=== PATIENT | male | born 1930 | race Caucasian/White ===

== ENCOUNTER 2016-05-24 09:50 | Outpatient (CLI) | payer MEDICARE, OTHER ==
[2015-12-03 13:58] VITALS: BP 97/48
[2016-05-24 10:36] LABS: MEAN CORPUSCULAR HEMOGLOBIN 29.1 pg (28.0-34.0); MEAN CORPUSCULAR VOLUME 87.4 fl (80.0-100.0)
[2016-05-24 10:49] LABS: eGFR (African) > 60; eGFR (Non-African) > 60
== END 2016-05-24 09:52 ==
LOC: LAB 09:50
PROVIDERS: ATTEND Internal Medicine Cardiovascular Disease
DX: Z51.81 Encounter for therapeutic drug level monitoring (principal); Z79.01 Long term (current) use of anticoagulants; I48.0 Paroxysmal atrial fibrillation
CPT/HCPCS: 36415; 80048; 85027

== ENCOUNTER 2016-05-30 08:09 | Outpatient (CLI) | payer MEDICARE, OTHER ==
[2015-12-03 13:58] VITALS: BP 97/48
== END 2016-05-30 08:10 ==
LOC: POD 08:09
PROVIDERS: ATTEND Podiatrist Public Medicine
DX: E11.9 Type 2 diabetes mellitus without complications (principal); B35.1 Tinea unguium; L60.0 Ingrowing nail; M79.674 Pain in right toe(s); M79.675 Pain in left toe(s)
CPT/HCPCS: 11721; G0463

== ENCOUNTER 2016-06-10 09:38 | Emergency (ER) | payer MEDICARE, OTHER ==
--- NOTE | 2016-06-10 10:23 | ED Physician Documentation ---
General Adult - HISTORIAN Historian: patient, spouse - [facility] Chief Complaint: General Adult Additional Information: pt concern re pace maker and questions need for zarelto-asymptomatic at thiss time but has had some bruising-also concern that cardiologists did not explain his meds to his satisfaction Onset: days ago (3-4) Timing: still present (last noct legs slightly swollen but gone now. main concern heart rhythm) Severity: mild - ROS CONST: no problems EYES/ENT: denies: problems with vision (has glaucoma) CVS/RESP: denies: chest pain, shortness of breath, cough GI/: denies: abdominal pain, problems urinating, vomiting, nausea MS/SKIN/LYMPH: none NEURO/PSYCH: denies: headache, fainting, dizziness - PAST HX Past History: hypertension, other (card arrythmia-wears pace maker-checks current) Other History: other (gall stone bph pud in [id number] recent glaucoma) Surgeries/Procedures: other (pacemaker tkonsils as child) Allergies/Adverse Reactions: Allergies Allergy/AdvReac Type Severity Reaction Status Date / Time No Known Allergies Allergy Verified 06/10/16 10:25 Home Medications: Ambulatory Orders Medication Instructions Recorded Amlodipine Besylate [Norvasc] 5 mg PO DAILY 04/09/12 Aspirin EC [Ecotrin] 81 mg PO QD 04/09/12 Hydrochlorothiazide [Hydrodiuril] 25 mg PO DAILY 04/09/12 Lisinopril [Prinivil] 40 mg PO DAILY 04/09/12 Multivitamin [Chewable Multi 1 each PO DAILY 04/09/12 Vitamin] Ranitidine HCl 150 mg PO BID 04/09/12 Tamsulosin HCl [Flomax] 0.4 mg PO DAILY 04/09/12 Timolol Maleate [Timoptic XE] 0.5 ml OP DAILY 04/09/12 Rivaroxaban [Xarelto] 10 mg PO HS 06/10/16 - SOCIAL HX Smoking History: non-smoker Alcohol Use: none Drug Use: none - FAMILY HX Family History: No - VITAL SIGNS Vital Signs: Vital Signs Temp Pulse Resp BP Pulse Ox 97/48 12/03/15 15:02 - REVIEWED ASSESSMENTS Nursing Assessment Reviewed: Yes Vitals Reviewed: Yes ED Results Lab/Radiology - Radiology Radiology Impressions: cxr = no acute disease seen - Orders Orders: ED Orders Category Date Time Status Continuous EKG monitoring Q30M Care 06/10/16 09:50 Active Continuous Pulse Oximetry Q30M Care 06/10/16 09:[address] Saline Lock/IV NOW Care 06/10/16 09:50 Active CHEST P.A.&LAT 2 VIEWS [RAD] Stat Exams 06/10/16 09:50 Ordered CBC/PLATELET/DIFF Routine Lab 06/10/16 10:05 Received CMP Routine Lab 06/10/16 10:05 Received CREATINE KINASE Routine Lab 06/10/16 10:05 Received NT-proBNP Stat Lab 06/10/16 10:05 Received PT [PT-INR] Routine Lab 06/10/16 10:05 Received TROPONIN I (cTnI) Stat Lab 06/10/16 10:05 Received EKG WITH COMPARISON Stat Ther 06/10/16 09:50 Ordered General Adult Physical Exam - PHYSICAL EXAM GENERAL APPEARANCE: no distress EENT: eye inspection normal NECK: normal inspection, thyroid normal, supple RESPIRATORY: no resp distress, chest non-tender, breath sounds normal CVS: reg rate & rhythm (pacemaker wkorking fairly regularily-ecg shows capture) ABDOMEN: soft, non-tender BACK: normal inspection SKIN: warm/dry, normal color. No: cyanosis, diaphoresis, jaundice EXTREMITIES: non-tender, normal range of motion, no edema NEURO: oriented X3, motor nml, sensation nml, mood/affect nml, cognition normal Discharge Clincal Impression: Cardiac arrhythmia, anxiety, Electrolyte imbalance Home Medications: Ambulatory Orders Amlodipine Besylate [Norvasc] 5 mg PO DAILY 04/09/12 Aspirin EC [Ecotrin] 81 mg PO QD 04/09/12 Hydrochlorothiazide [Hydrodiuril] 25 mg PO DAILY 04/09/12 Lisinopril [Prinivil] 40 mg PO DAILY 04/09/12 Multivitamin [Chewable Multi Vitamin] 1 each PO DAILY 04/09/12 Ranitidine HCl 150 mg PO BID 04/09/12 Tamsulosin HCl [Flomax] 0.4 mg PO DAILY 04/09/12 Timolol Maleate [Timoptic XE] 0.5 ml OP DAILY 04/09/12 Rivaroxaban [Xarelto] 10 mg PO HS 06/10/16 Comments: attempt youth counselor re [id number]-[id number] says he just insist on same diet Condition: Good Disposition: 01 HOME, SELF-CARE Decision to Admit: NO Decision Time: 11:46
[2016-06-10 10:32] LABS: eGFR (African) > 60; eGFR (Non-African) > 60
[2016-06-10 10:36] LABS: BASOPHILS % 1.1 (0.0-1.5); MEAN CORPUSCULAR HEMOGLOBIN 28.9 pg (28.0-34.0); MEAN CORPUSCULAR VOLUME 87.1 fl (80.0-100.0); NEUTROPHILS # 1.2 # k/uL (1.4-7.7)
--- NOTE | 2016-06-10 11:16 | Diagnostic Imaging Report ---
[facility] [address] [facility].[address] [address] Report Submission Date: Jun 10, 2016 10:35:48 AM CDT Patient Study Name: ARSALAN KAMARA Date: Jun 10, 2016 10:24:00 AM CDT Modality Type: CR Gender: M Description: CHEST : 28 Institution: [facility] Physician: SARAI DINH - SABRINA Chest 2 views History: Shortness of breath Findings: The lungs are clear. Heart size and pulmonary vascularity are normal. A dual lead transvenous pacemaker is present. Posterior costophrenic sulcus blunting is observed. Impression: Pacemaker and possibly trace bilateral pleural effusions. Electronically signed on Jun 10, 2016 10:35:48 AM CDT by: Ray TEE
[2016-06-10 11:57] VITALS: BP 101/68
[2016-06-11 07:05] LABS: APPEARANCE,URINE CLEAR (CLEAR); COLOR,URINE YELLOW (YELLOW); OCCULT BLOOD,URINE NEGATIVE (NEGATIVE); UROBILINOGEN URINE 0.2 Eu (0.2-1.0)
== END 2016-06-10 11:56 | disposition home or self-care (01) ==
LOC: ED 09:38
DX: R00.8 Other abnormalities of heart beat (principal); F41.9 Anxiety disorder, unspecified
CPT/HCPCS: 71020; 80053; 81002; 82550; 83880; 84484; 85025; 85610; 99283; S1016

== ENCOUNTER 2016-09-12 08:15 | Outpatient (CLI) | payer MEDICARE, OTHER | END 2016-09-12 08:16 | LOC: POD 08:15 | PROVIDERS: ATTEND Podiatrist Public Medicine | DX: B35.1 Tinea unguium (principal); E11.9 Type 2 diabetes mellitus without complications; L60.0 Ingrowing nail; M79.674 Pain in right toe(s); M79.675 Pain in left toe(s) | CPT/HCPCS: 11721; G0463 ==

== ENCOUNTER 2016-09-25 12:47 | Outpatient (CLI) | payer MEDICARE, OTHER | END 2016-09-25 12:50 | LOC: CARD 12:47 | PROVIDERS: ATTEND Internal Medicine Cardiovascular Disease | DX: I48.91 Unspecified atrial fibrillation (principal) | CPT/HCPCS: G0463 ==

== ENCOUNTER 2016-10-09 12:54 | Outpatient (CLI) | payer MEDICARE, OTHER | END 2016-10-09 12:55 | LOC: CARD 12:54 | PROVIDERS: ATTEND Internal Medicine Cardiovascular Disease | DX: I48.91 Unspecified atrial fibrillation (principal); I10 Essential (primary) hypertension | CPT/HCPCS: G0463 ==

== ENCOUNTER 2016-10-28 10:53 | Emergency (ER) | payer MEDICARE, OTHER ==
[2016-10-28] MEDS ORDERED: DIPH,PERTUSS(ACELL),TET VAC/PF 0.5 ML DISP.SYRIN IM ONE (11:10)
--- NOTE | 2016-10-28 11:56 | ED Physician Documentation ---
General Adult - HISTORIAN Historian: patient - HPI Stated Complaint: skin tear Chief Complaint: General Adult Onset: minutes Timing: still present Severity: mild Further Comments: yes (Pt is an 86 yo male who fell and has a small abrasion on his R knee, and skin tears over R elbow. Tetanus is not utd.) - ROS CONST: no problems EYES/ENT: none CVS/RESP: none GI/: none MS/SKIN/LYMPH: other (skin tears R elbow, abrasion R knee) - PAST HX Past History: other (pacemaker, HTN, GERD, enlarged prostate) Allergies/Adverse Reactions: Allergies Allergy/AdvReac Type Severity Reaction Status Date / Time No Known Allergies Allergy Verified 06/10/16 10:25 Home Medications: Ambulatory Orders Medication Instructions Recorded Amlodipine Besylate [Norvasc] 5 mg PO DAILY 04/09/12 Aspirin EC [Ecotrin] 81 mg PO QD 04/09/12 Hydrochlorothiazide [Hydrodiuril] 25 mg PO DAILY 04/09/12 Lisinopril [Prinivil] 40 mg PO DAILY 04/09/12 Multivitamin [Chewable Multi 1 each PO DAILY 04/09/12 Vitamin] Ranitidine HCl 150 mg PO BID 04/09/12 Tamsulosin HCl [Flomax] 0.4 mg PO DAILY 04/09/12 Timolol Maleate [Timoptic XE] 0.5 ml OP DAILY 04/09/12 Rivaroxaban [Xarelto] 10 mg PO HS 06/10/16 - SOCIAL HX Smoking History: non-smoker - FAMILY HX Family History: No - VITAL SIGNS Vital Signs: Vital Signs Temp Pulse Resp BP Pulse Ox 98.1 F 65 18 150/78 96 10/28/16 10:54 10/28/16 10:54 10/28/16 10:54 10/28/16 10:54 10/28/16 10:54 - REVIEWED ASSESSMENTS Nursing Assessment Reviewed: Yes Vitals Reviewed: Yes Progress - Progress Progress: Skin tears repaired with steri-strips. Dressing applied. Tdap 0.5 ml IM ED Results Lab/Radiology - Orders Orders: ED Orders Category Date Time Status Diph,Pertuss(Acell),Tet Vac/Pf [Adacel] Med 10/28/16 11:10 Discontinued 0.5 ml IM .ONCE ONE General Adult Physical Exam - PHYSICAL EXAM GENERAL APPEARANCE: no distress EENT: eye inspection normal NECK: normal inspection, supple RESPIRATORY: no resp distress, chest non-tender CVS: reg rate & rhythm, heart sounds normal BACK: normal inspection SKIN: other (skin tears R elbow, abrasion R knee) EXTREMITIES: normal range of motion NEURO: oriented X3, motor nml, sensation nml Discharge Clincal Impression: R elbow skin tears, R knee abrasion Referrals: Adelita Bains MD [Primary Care Provider] - 2 Days Home Medications: Ambulatory Orders Amlodipine Besylate [Norvasc] 5 mg PO DAILY 04/09/12 Aspirin EC [Ecotrin] 81 mg PO QD 04/09/12 Hydrochlorothiazide [Hydrodiuril] 25 mg PO DAILY 04/09/12 Lisinopril [Prinivil] 40 mg PO DAILY 04/09/12 Multivitamin [Chewable Multi Vitamin] 1 each PO DAILY 04/09/12 Ranitidine HCl 150 mg PO BID 04/09/12 Tamsulosin HCl [Flomax] 0.4 mg PO DAILY 04/09/12 Timolol Maleate [Timoptic XE] 0.5 ml OP DAILY 04/09/12 Rivaroxaban [Xarelto] 10 mg PO HS 06/10/16 Condition: Good Disposition: 01 HOME, SELF-CARE Decision to Admit: NO Decision Time: 11:57
[2016-10-28 12:27] VITALS: BP 131/67
== END 2016-10-28 12:00 | disposition home or self-care (01) ==
LOC: ED 10:53
DX: S51.011A Laceration without foreign body of right elbow, initial encounter (principal); S80.211A Abrasion, right knee, initial encounter; W19.XXXA Unspecified fall, initial encounter; Y93.9 Activity, unspecified; Y99.9 Unspecified external cause status
CPT/HCPCS: 90471; 90715; 99283

== ENCOUNTER 2016-12-12 08:19 | Outpatient (CLI) | payer MEDICARE, OTHER | END 2016-12-12 08:35 | LOC: POD 08:19 | PROVIDERS: ATTEND Podiatrist Public Medicine | DX: B35.1 Tinea unguium (principal); E11.9 Type 2 diabetes mellitus without complications; L60.0 Ingrowing nail; M79.674 Pain in right toe(s); M79.675 Pain in left toe(s) | CPT/HCPCS: 11721; G0463 ==

== ENCOUNTER 2016-12-29 10:09 | Emergency (ER) | payer MEDICARE, OTHER ==
--- NOTE | 2016-12-29 10:14 | ED Physician Documentation ---
General Adult - HISTORIAN Historian: patient - PAST HX Allergies/Adverse Reactions: Allergies Allergy/AdvReac Type Severity Reaction Status Date / Time No Known Allergies Allergy Verified 06/10/16 10:25 Home Medications: Ambulatory Orders Medication Instructions Recorded Amlodipine Besylate [Norvasc] 5 mg PO DAILY 04/09/12 Aspirin EC [Ecotrin] 81 mg PO QD 04/09/12 Hydrochlorothiazide [Hydrodiuril] 25 mg PO DAILY 04/09/12 Lisinopril [Prinivil] 40 mg PO DAILY 04/09/12 Multivitamin [Chewable Multi 1 each PO DAILY 04/09/12 Vitamin] Ranitidine HCl 150 mg PO BID 04/09/12 Tamsulosin HCl [Flomax] 0.4 mg PO DAILY 04/09/12 Timolol Maleate [Timoptic XE] 0.5 ml OP DAILY 04/09/12 Rivaroxaban [Xarelto] 10 mg PO HS 06/10/16 - VITAL SIGNS Vital Signs: Vital Signs Temp Pulse Resp BP Pulse Ox 131/67 10/28/16 12:24 Discharge Referrals: Adelita Bains MD [Primary Care Provider] - 2 Days
== END 2016-12-29 10:20 | disposition left against medical advice (07) ==
LOC: ED 10:09
DX: Z53.21 Procedure and treatment not carried out due to patient leaving prior to being seen by health care provider (principal)
CPT/HCPCS: 99281

== ENCOUNTER 2017-01-30 10:07 | Emergency (ER) | payer MEDICARE, OTHER ==
[2017-01-30 10:18] VITALS: BP 112/57
--- NOTE | 2017-01-30 10:30 | ED Physician Documentation ---
General Adult - HISTORIAN Historian: patient - HPI Stated Complaint: Right Shoulder Pain X 2 Months Chief Complaint: General Adult Onset: other (weeks) Timing: still present Severity: moderate Further Comments: yes (Pt is an 86 yo male with R shoulder pain. Pt fell on 12/04 and was seen here for skin tears to his R arm. Since then pt has developed R shoulder and upper arm pain. He has difficulty reaching behind to put on his coat. No further trauma since 10/28/16.) - ROS CONST: no problems EYES/ENT: none CVS/RESP: none GI/: none MS/SKIN/LYMPH: other (R shoulder, upper arm pain) - PAST HX Past History: hypertension, other (GERD, BPH, glaucoma, pacemaker (for bradycardia)) Allergies/Adverse Reactions: Allergies Allergy/AdvReac Type Severity Reaction Status Date / Time No Known Allergies Allergy Verified 01/30/17 10:18 Home Medications: Ambulatory Orders Medication Instructions Recorded Amlodipine Besylate [Norvasc] 5 mg PO DAILY 04/09/12 Aspirin EC [Ecotrin] 81 mg PO QD 04/09/12 Hydrochlorothiazide [Hydrodiuril] 25 mg PO DAILY 04/09/12 Lisinopril [Prinivil] 40 mg PO DAILY 04/09/12 Multivitamin [Chewable Multi 1 each PO DAILY 04/09/12 Vitamin] Ranitidine HCl 150 mg PO BID 04/09/12 Tamsulosin HCl [Flomax] 0.4 mg PO DAILY 04/09/12 Timolol Maleate [Timoptic XE] 0.5 ml OP DAILY 04/09/12 Rivaroxaban [Xarelto] 10 mg PO HS 06/10/16 - SOCIAL HX Smoking History: non-smoker - FAMILY HX Family History: No - VITAL SIGNS Vital Signs: Vital Signs Temp Pulse Resp BP Pulse Ox 97.1 F L 80 18 112/57 96 01/30/17 10:10 01/30/17 10:10 01/30/17 10:10 01/30/17 10:10 01/30/17 10:10 - REVIEWED ASSESSMENTS Nursing Assessment Reviewed: Yes Vitals Reviewed: Yes Progress - Progress Progress: x-ray R shoulder: Osteopenia and degenerative changes. No evidence for fracture line. If suspect soft tissue injury, consider obtaining MRI to further evaluate. Sling tylenol prn consider MRI if sx persist, but appears as muscle strain on exam. General Adult Physical Exam - PHYSICAL EXAM GENERAL APPEARANCE: no distress NECK: normal inspection, supple RESPIRATORY: no resp distress, chest non-tender CVS: reg rate & rhythm, heart sounds normal BACK: normal inspection SKIN: warm/dry, normal color EXTREMITIES: other (good strength with rotator cuff maneuvers, except R internal rotation w flexion--4+ vs 5+ on R. ) NEURO: oriented X3, motor nml, sensation nml Discharge Clincal Impression: R shoulder strain Referrals: Sergio Felix MD [Primary Care Provider] - Condition: Good Disposition: 01 HOME, SELF-CARE Decision to Admit: NO Decision Time: 11:09
--- NOTE | 2017-01-30 15:02 | Diagnostic Imaging Report ---
MAT PENN [facility] [address] [facility] [address] [address] Report Submission Date: Jan 30, 2017 11:00:08 AM CABIN WORKER Patient Study Name: ARSALAN KAMARA Date: Jan 30, 2017 10:36:22 AM CABIN WORKER Modality Type: CR Gender: M Description: SHOULDER : 28 Institution: [facility] Physician: MAT PENN Examination: Plain film shoulder History: The shoulders covered. History of fall. Comparison exams: None provided Findings: 3 views of the shoulder demonstrates generalized osteopenia. No evidence for fracture or dislocation. Acromioclavicular joint degenerative changes. No soft tissue abnormality Impression: Osteopenia and degenerative changes. No evidence for fracture line. If suspect soft tissue injury, consider obtaining MRI to further evaluate. Electronically signed on Jan 30, 2017 11:00:08 AM CABIN WORKER by: Bola TEE
== END 2017-01-30 11:16 | disposition home or self-care (01) ==
LOC: ED 10:07
DX: S46.911A Strain of unspecified muscle, fascia and tendon at shoulder and upper arm level, right arm, initial encounter (principal); X58.XXXA Exposure to other specified factors, initial encounter; Y93.9 Activity, unspecified; Y99.9 Unspecified external cause status
CPT/HCPCS: 73030; 99283

== ENCOUNTER 2017-01-30 20:09 | Emergency (ER) | payer MEDICARE, OTHER ==
--- NOTE | 2017-01-30 20:25 | ED Physician Documentation ---
Upper Respiratory Symptoms - HISTORIAN Historian: patient, spouse - HPI Chief Complaint: Fever Additional Information: said he started having chills today after leaving here, after being seen for a shoulder complaint. He said he started having a stuffy nose x 1 week. No other symptoms. He is not wearing the sling they sent him home with. Onset: days ago Duration: constant, intermittent episodes Context: denies: recent foreign travel, insect bite(s), tick(s), recent chemotherapy Severity: mild Associated Symptoms: chills, runny nose, sinus drainage Worsened by Deep Breath: No Further Comments: no - ROS CONST/EYES: denies: weakness, eye redness CVS/RESP: none LYMPH: denies: leg swelling GI/: none NEURO/PSYCH: denies: fainting, dizziness MS/SKIN: denies: joint pain, muscle aches - PAST HX Lung Disease: none PE Risk Factors: hypertension Surgeries/Procedures: none Immunizations: influenza, pneumovax, UTD Allergies/Adverse Reactions: Allergies Allergy/AdvReac Type Severity Reaction Status Date / Time No Known Allergies Allergy Verified 01/30/17 10:18 Home Medications: Ambulatory Orders Medication Instructions Recorded Amlodipine Besylate [Norvasc] 5 mg PO DAILY 04/09/12 Aspirin EC [Ecotrin] 81 mg PO QD 04/09/12 Hydrochlorothiazide [Hydrodiuril] 25 mg PO DAILY 04/09/12 Lisinopril [Prinivil] 40 mg PO DAILY 04/09/12 Multivitamin [Chewable Multi 1 each PO DAILY 04/09/12 Vitamin] Ranitidine HCl 150 mg PO BID 04/09/12 Tamsulosin HCl [Flomax] 0.4 mg PO DAILY 04/09/12 Timolol Maleate [Timoptic XE] 0.5 ml OP DAILY 04/09/12 Rivaroxaban [Xarelto] 10 mg PO HS 06/10/16 - SOCIAL HX Smoking History: non-smoker Alcohol Use: none Drug Use: none - FAMILY HX Family History: none - VITAL SIGNS Vital Signs: Vital Signs Temp Pulse Resp BP Pulse Ox 112/57 01/30/17 11:16 - REVIEWED ASSESSMENTS Nursing Assessment Reviewed: Yes Vitals Reviewed: Yes Upper Respiratory Symptoms - EXAM General Appearance: no acute distress, alert EENT: eyes nml inspection, nml ENT inspection, lids & conjunct. nml, pharynx nml , airway nml. No: pain over sinuses, purulent nasal drainage Neck: normal inspection. No: lymphadenopathy Respiratory: no resp. distress, breath sounds nml, no pain on inspiration, speaks full sentences Abdomen: non-tender CVS: reg rate & rhythm, heart sounds normal, equal pulses, no murmur Skin: color nml, no rash, warm,dry Extremities: non-tender, normal range of motion, no evidence of injury Neuro/Psych: oriented x3, neuro intact, mood/affect nml Discharge Clincal Impression: Allergic rhinitis Qualifiers: Chronicity: acute Allergic rhinitis trigger: unspecified Allergic rhinitis seasonality: unspecified seasonality Qualified Code(s): J30.9 - Allergic rhinitis, unspecified Referrals: Sergio Felix MD [Primary Care Provider] - 2 Days Condition: Good Disposition: 01 HOME, SELF-CARE Decision to Admit: NO Date of Decison to Admit: 01/30/17 Decision Time: 20:27
[2017-01-30 20:38] VITALS: BP 97/48
== END 2017-01-30 20:30 | disposition home or self-care (01) ==
LOC: ED 20:09
DX: J30.9 Allergic rhinitis, unspecified (principal)
CPT/HCPCS: 99283

== ENCOUNTER 2017-03-08 08:10 | Emergency (ER) | payer MEDICARE, OTHER ==
--- NOTE | 2017-03-08 08:15 | ED Physician Documentation ---
General Adult - HISTORIAN Historian: patient, spouse - HPI Stated Complaint: influenza a Chief Complaint: Cough/ Upper Respiratory Onset: days ago (4) Timing: still present Severity: mild Further Comments: yes (he was Dx with influenza A at PCP on Saturday and continues to feel a cough and congested. He is taking Tamiflu. does report taking in fluids well.) - ROS CONST: fever (subsided two days ago ), weakness EYES/ENT: nasal drainage, nasal congestion CVS/RESP: cough GI/: nausea. denies: vomiting, diarrhea MS/SKIN/LYMPH: none NEURO/PSYCH: headache. denies: fainting, dizziness - PAST HX Past History: hypertension, other (reflux, ) Other History: other Surgeries/Procedures: other (Pace maker ) Immunizations: UTD Allergies/Adverse Reactions: Allergies Allergy/AdvReac Type Severity Reaction Status Date / Time No Known Allergies Allergy Verified 03/08/17 08:38 Home Medications: Ambulatory Orders Medication Instructions Recorded Amlodipine Besylate [Norvasc] 5 mg PO DAILY 04/09/12 Aspirin EC [Ecotrin] 81 mg PO QD 04/09/12 Hydrochlorothiazide [Hydrodiuril] 25 mg PO DAILY 04/09/12 Lisinopril [Prinivil] 40 mg PO DAILY 04/09/12 Multivitamin [Chewable Multi 1 each PO DAILY 04/09/12 Vitamin] Ranitidine HCl 150 mg PO BID 04/09/12 Tamsulosin HCl [Flomax] 0.4 mg PO DAILY 04/09/12 Timolol Maleate [Timoptic XE] 0.5 ml OP DAILY 04/09/12 Rivaroxaban [Xarelto] 10 mg PO HS 06/10/16 Melatonin 3 mg PO HS u2 02/01/17 Montelukast Sodium 10 mg PO DAILY u2 02/01/17 Multivitamin [Daily Multiple 1 each PO DAILY u2 02/01/17 Vitamin] Azithromycin [Zithromax] 250 mg PO DAILY #1 pkg 03/08/17 - SOCIAL HX Smoking History: non-smoker Drug Use: none - FAMILY HX Family History: No - VITAL SIGNS Vital Signs: Vital Signs Temp Pulse Resp BP Pulse Ox 172/68 01/30/17 20:30 - REVIEWED ASSESSMENTS Nursing Assessment Reviewed: Yes Vitals Reviewed: Yes ED Results Lab/Radiology - Radiology Radiology Impressions: Examination: PA and lateral chest. History: Evaluate lung leon. Comparison exam: June 04 Findings: PA lateral chest demonstrate a normal cardiac and mediastinal silhouette. Tortuous aorta with vascular calcifications involving the aortic arch. Mild lower lung parenchymal haziness. Blunting of the costophrenic margins. Left-sided cardiac pacemaker. Osseous structures are appropriate for age. Impression: Bibasilar infiltrate/effusions. Electronically signed on Mar 08, 2017 9:21:27 AM SCHOOL BUSINESS MANAGER by: Bola Shah General Adult Physical Exam - PHYSICAL EXAM GENERAL APPEARANCE: no distress EENT: eye inspection normal NECK: normal inspection RESPIRATORY: no resp distress, wheezes CVS: reg rate & rhythm, heart sounds normal, equal pulses, no murmur ABDOMEN: soft, normal bowel sounds SKIN: warm/dry, normal color EXTREMITIES: non-tender, normal range of motion NEURO: oriented X3, CN's nml as tested Discharge Clincal Impression: Influenza Pneumonia Qualifiers: Pneumonia type: due to unspecified organism Laterality: unspecified laterality Lung location: unspecified part of lung Qualified Code(s): J18.9 - Pneumonia, unspecified organism Prescriptions: Azithromycin [Zithromax] 250 mg PO DAILY #1 pkg Comments: Increase fluids Rest OTC meds for symptom relief Azithromycin as directed Continue tamiflu Follow up with PCP Saturday or Saturday Return to ER for any concerning symptoms Condition: Stable Disposition: 01 HOME, SELF-CARE Decision to Admit: NO Date of Decison to Admit: 03/08/17 Decision Time: 10:25
[2017-03-08] MEDS ORDERED: IPRATROPIUM/ALBUTEROL SULFATE 3 ML AMPUL.NEB NEB ONE (08:25)
[2017-03-08 08:51] LABS: MEAN CORPUSCULAR HEMOGLOBIN 28.1 pg (28.0-34.0); MEAN CORPUSCULAR VOLUME 81.3 fl (80.0-100.0)
[2017-03-08 09:10] LABS: EOSINOPHILS % 1 % (0-7); HYPOCHROMASIA 1+ (NEGATIVE); MONOCYTES % 18 % (0-11); SEGMENTED NEUTROPHILS % 60 % (39-79)
[2017-03-08 09:11] LABS: eGFR (African) > 60; eGFR (Non-African) > 60
[2017-03-08] MEDS ORDERED: 0.9 % SODIUM CHLORIDE 1,000 ML IV ONE ×2 (09:32→09:33)
[2017-03-08 10:32] VITALS: BP 110/72
--- NOTE | 2017-03-08 12:41 | Diagnostic Imaging Report ---
SHAWN BOWSER [facility] [address] [facility] [address] [place], [place]. [address] Report Submission Date: Mar 08, 2017 9:21:27 AM ELECTRICAL CONSTRUCTION PROJECT MANAGER Patient Study Name: ARSALAN KAMARA Date: Mar 08, 2017 9:00:26 AM ELECTRICAL CONSTRUCTION PROJECT MANAGER Modality Type: CR Gender: M Description: CHEST : 28 Institution: [facility] Physician: SHAWN BOWSER Examination: PA and lateral chest. History: Evaluate lung leon. Comparison exam: June 04 Findings: PA lateral chest demonstrate a normal cardiac and mediastinal silhouette. Tortuous aorta with vascular calcifications involving the aortic arch. Mild lower lung parenchymal haziness. Blunting of the costophrenic margins. Left-sided cardiac pacemaker. Osseous structures are appropriate for age. Impression: Bibasilar infiltrate/effusions. Electronically signed on Mar 08, 2017 9:21:27 AM ELECTRICAL CONSTRUCTION PROJECT MANAGER by: Bola TEE
== END 2017-03-08 10:30 | disposition home or self-care (01) ==
LOC: ED 08:10
DX: J09.X1 Influenza due to identified novel influenza A virus with pneumonia (principal)
CPT/HCPCS: 36415; 71020; 80053; 85025; 96365; 99283; J7030; S1016

== ENCOUNTER 2017-04-03 07:50 | Outpatient (CLI) | payer MEDICARE, OTHER | END 2017-04-03 07:52 | LOC: POD 07:50 | PROVIDERS: ATTEND Podiatrist Public Medicine | DX: B35.1 Tinea unguium (principal); E11.9 Type 2 diabetes mellitus without complications; L60.0 Ingrowing nail; M79.674 Pain in right toe(s); M79.675 Pain in left toe(s) | CPT/HCPCS: 11721; G0463 ==

== ENCOUNTER 2017-06-26 08:18 | Outpatient (CLI) | payer MEDICARE, OTHER | END 2017-06-26 08:20 | LOC: POD 08:18 | PROVIDERS: ATTEND Podiatrist Public Medicine | DX: B35.1 Tinea unguium (principal); E11.9 Type 2 diabetes mellitus without complications; L60.0 Ingrowing nail; M79.674 Pain in right toe(s); M79.675 Pain in left toe(s) | CPT/HCPCS: 11721; G0463 ==

== ENCOUNTER 2018-04-27 12:39 | Emergency (ER) | payer MEDICARE, OTHER ==
--- NOTE | 2018-04-27 12:54 | ED Physician Documentation ---
Fall - HISTORIAN Historian: patient - HPI Stated Complaint: right arm/shoulder pain after fall Chief Complaint: Fall Onset: just prior to arrival Where: home Context: other (was carrying grocery bags and just fell ) Associated Symptoms:: no loss of consciousness Location of Pain/Injury: R shoulder, upper extremity Injury to Right Extremity: shoulder, arm, elbow Injury to Left Extremity: none Further Comments: yes (He states he was carrying in the groceries and he fell on his right shoulder/arm . He states the pain is only when he makes a fist and he feels he cannot lift his arm all the way up and when he attempts this he has pain in the shoulder joint. He denies any constant pain. He has not tried any OTC meds for pain. No ice. No loss of feeling.) - ROS CONST: no problems - PAST HX Past History: cardiac disease Allergies/Adverse Reactions: Allergies Allergy/AdvReac Type Severity Reaction Status Date / Time No Known Allergies Allergy Verified 04/27/18 13:59 Home Medications: Ambulatory Orders Medication Instructions Recorded Amlodipine Besylate [Norvasc] 5 mg PO DAILY 04/09/12 Aspirin EC [Ecotrin] 81 mg PO QD 04/09/12 Hydrochlorothiazide [Hydrodiuril] 25 mg PO DAILY 04/09/12 Lisinopril [Prinivil] 40 mg PO DAILY 04/09/12 Multivitamin [Chewable Multi 1 each PO DAILY 04/09/12 Vitamin] Ranitidine HCl 150 mg PO BID 04/09/12 Tamsulosin HCl [Flomax] 0.4 mg PO DAILY 04/09/12 Timolol Maleate [Timoptic XE] 0.5 ml OP DAILY 04/09/12 Rivaroxaban [Xarelto] 10 mg PO HS 06/10/16 Melatonin 3 mg PO HS u2 02/01/17 Montelukast Sodium 10 mg PO DAILY u2 02/01/17 Multivitamin [Daily Multiple 1 each PO DAILY u2 02/01/17 Vitamin] Azithromycin [Zithromax] 250 mg PO DAILY #1 pkg 03/08/17 - SOCIAL HX Smoking History: non-smoker Alcohol Use: none Drug Use: none - FAMILY HX Family History: none - VITAL SIGNS Vital Signs: Vital Signs Temp Pulse Resp BP Pulse Ox 110/72 03/08/17 10:30 - REVIEWED ASSESSMENTS Nursing Assessment Reviewed: Yes Vitals Reviewed: Yes ED Results Lab/Radiology - Radiology Radiology Impressions: Two views of the right elbow Clinical history: Fall today. Pain. Findings: Examination right elbow in AP and lateral views demonstrates degenerative changes with slight narrowing the joint space. There is no evident fracture and no lytic or blastic lesion. Vascular calcification is incidentally noted. Impression: 1. Degenerative changes. 2. No fracture. Electronically signed on Apr 27, 2018 1:45:12 PM CDT by: Raf Coleman Two views of right humerus Clinical history: Fall today. Pain. Findings: Examination of the right humerus in AP view with internal and external rotation fails to demonstrate evidence of fracture. There is no lytic or blastic lesion. Degenerative changes are seen in the shoulder and elbow joints. Impression: 1. No fracture. Electronically signed on Apr 27, 2018 1:46:13 PM CDT by: Raf Coleman Three views of the right shoulder Clinical history: Fall with injury. Pain. Findings: Examination right shoulder in multiple views fails to demonstrate evidence of fracture or dislocation. There are degenerative changes in the acromioclavicular joint and superior migration of right humeral head. Impression: 1. Degenerative changes. 2. No fracture. Electronically signed on Apr 27, 2018 1:50:50 PM CDT by: Raf Coleman Fall Physical Exam - Physical Exam General Appearance: no acute distress, alert Head: non-tender Neck: non-tender Eye: KATE ENT: nml external inspection Resp/CVS: chest non-tender, breath sounds nml, no resp. distress, heart sounds nml. No: rib tenderness Abdomen: soft Neuro: oriented x3 Skin: color nml, other (bruise on right elbow ) Back: normal inspection Extremities: atraumatic Joint: painful (right shoulder with active elevation - Pulses + - sensation + and decreased ROM ) - Fany Coma Score Eyes Open: Spontaneous Speech: Oriented Motor: Obeys Commands Discharge Clincal Impression: Right shoulder pain Qualifiers: Chronicity: acute Qualified Code(s): M25.511 - Pain in right shoulder Referrals: Sergio Felix MD [Primary Care Provider] - 2 Days Comments: 1. Tylenol or Ibuprofen as directed on bottle for pain 2. Follow up with PCP in 2-4 days 3. Return to ER for any concerns Condition: Stable Disposition: 01 HOME, SELF-CARE Decision to Admit: NO Date of Decison to Admit: 04/27/18 Decision Time: 14:00
[2018-04-27 13:19] VITALS: BP 126/53
--- NOTE | 2018-04-27 13:46 | Diagnostic Imaging Report ---
SHAWN BOWSER [facility] [id number] [address] Report Submission Date: Apr 27, 2018 1:45:12 PM CDT Patient Study Name: ARSALAN KAMARA Date: Apr 27, 2018 1:14:38 PM CDT Modality Type: DX Gender: M Description: ELBOW 3 VIEWS : 28 Institution: [facility] Physician: SHAWN BOWSER Two views of the right elbow Clinical history: Fall today. Pain. Findings: Examination right elbow in AP and lateral views demonstrates degenerative changes with slight narrowing the joint space. There is no evident fracture and no lytic or blastic lesion. Vascular calcification is incidentally noted. Impression: 1. Degenerative changes. 2. No fracture. Electronically signed on Apr 27, 2018 1:45:12 PM CDT by: Raf TEE
--- NOTE | 2018-04-27 13:47 | Diagnostic Imaging Report ---
SHAWN BOWSER [facility] [id number] [facility].[address] [address] Report Submission Date: Apr 27, 2018 1:46:13 PM CDT Patient Study Name: ARSALAN KAMARA Date: Apr 27, 2018 1:14:38 PM CDT Modality Type: DX Gender: M Description: HUMERUS 2 VIEWS OR MORE : 28 Institution: [facility] Physician: SHAWN BOWSER Two views of right humerus Clinical history: Fall today. Pain. Findings: Examination of the right humerus in AP view with internal and external rotation fails to demonstrate evidence of fracture. There is no lytic or blastic lesion. Degenerative changes are seen in the shoulder and elbow joints. Impression: 1. No fracture. Electronically signed on Apr 27, 2018 1:46:13 PM CDT by: Raf TEE
--- NOTE | 2018-04-27 13:51 | Diagnostic Imaging Report ---
SHAWN BOWSER [facility] [address] [facility].[address] [address] Report Submission Date: Apr 27, 2018 1:50:50 PM CDT Patient Study Name: ARSALAN KAMARA Date: Apr 27, 2018 1:14:38 PM CDT Modality Type: DX Gender: M Description: SHOULDER 2 VIEWS OR MORE : 28 Institution: [facility] Physician: SHAWN BOWSER Three views of the right shoulder Clinical history: Fall with injury. Pain. Findings: Examination right shoulder in multiple views fails to demonstrate evidence of fracture or dislocation. There are degenerative changes in the acromioclavicular joint and superior migration of right humeral head. Impression: 1. Degenerative changes. 2. No fracture. Electronically signed on Apr 27, 2018 1:50:50 PM CDT by: Raf TEE
[2018-04-27] MEDS ORDERED: ACETAMINOPHEN 325 MG TABLET PO ONE (13:55)
[2018-04-27] MEDS ORDERED: ACETAMINOPHEN 325 MG TABLET ONE (13:56)
== END 2018-04-27 14:08 | disposition home or self-care (01) ==
LOC: ED 12:39
DX: M25.511 Pain in right shoulder (principal); W18.30XA Fall on same level, unspecified, initial encounter; Y93.89 Activity, other specified; Y92.009 Unspecified place in unspecified non-institutional (private) residence as the place of occurrence of the external cause
CPT/HCPCS: 73030; 73060; 73070; 99283; 99284

== ENCOUNTER 2018-10-03 14:20 | Emergency (ER) | payer MEDICARE, OTHER ==
[2018-10-03 14:33] VITALS: BP 137/54
--- NOTE | 2018-10-03 14:43 | ED Physician Documentation ---
Upper Extremity Problem - HISTORIAN Historian: patient - HPI Stated Complaint: R arm pain Chief Complaint: Upper Extremity Problem Additional Information: Patient presents to ER with hematoma to his right upper arm. Patient reports noticing the bruised area this morning when he woke up. He does not remember injuring the arm, however, he states I bruise easily. He denies any pain to the area but does state he has pain in his right shoulder from time to time after falling in April. Patient reports his made him come in. He states he has his labs drawn every month at the [place] and his blood work last month was fine. He goes back to the [place] on October 08. Location: R arm Onset: hours (12) Timing: still present Duration: constant Where: home Severity: mild Associated Symptoms: denies: fever, chills Exacerbated By: nothing Relieved By: nothing Quality: other (bruise) - ROS CONST: no problems EYES/ENT: none CVS/RESP: none GI/: none MS/SKIN/LYMPH: denies: calf pain NEURO/PSYCH: denies: headache - PAST HX Past History: none Other History: hypertension Surgeries/Procedures: none Allergies/Adverse Reactions: Allergies Allergy/AdvReac Type Severity Reaction Status Date / Time No Known Allergies Allergy Verified 10/03/18 14:31 Home Medications: Ambulatory Orders Medication Instructions Recorded Amlodipine Besylate [Norvasc] 5 mg PO DAILY 04/09/12 Aspirin EC [Ecotrin] 81 mg PO QD 04/09/12 Lisinopril [Prinivil] 40 mg PO DAILY 04/09/12 Ranitidine HCl 150 mg PO BID 04/09/12 Tamsulosin HCl [Flomax] 0.4 mg PO DAILY 04/09/12 Timolol Maleate [Timoptic XE] 0.5 ml OP DAILY 04/09/12 hydroCHLOROthiazide [Hydrodiuril] 25 mg PO DAILY 04/09/12 Multivitamin [Daily Multiple 1 each PO DAILY u2 02/01/17 Vitamin] Loratadine [Claritin] 1 tab PO DAILY 10/03/18 Zolpidem Tartrate [Ambien] 1 tab PO DAILY 10/03/18 - SOCIAL HX Smoking History: non-smoker Alcohol Use: none Drug Use: none - FAMILY HX Family History: none - VITAL SIGNS Vital Signs: Vital Signs Temp Pulse Resp BP Pulse Ox 97.2 F L 73 15 137/54 94 10/03/18 14:51 10/03/18 14:51 10/03/18 14:51 10/03/18 14:51 10/03/18 14:51 - REVIEWED ASSESSMENTS Nursing Assessment Reviewed: Yes Vitals Reviewed: Yes Upper Extremity Problem - EXAM General Appearance: no acute distress, alert Skin: warm/dry, normal color Shoulder Exam: non-tender, ecchymosis (8 cm oblong area of ecchymois on anterior upper arm), limited ROM Elbow/Forearm Exam: normal inspection, non-tender, no evidence of injury, normal ROM Wrist Exam: normal inspection, no evidence of injury, normal ROM Hand Exam: normal inspection, no evidence of injury Neuro/Tendon: normal sensation, normal motor functions, normal tendon functions EENT: eye inspection normal, ENT inspection normal, KATE CVS: reg rate & rhythm, heart sounds normal, equal pulses Vascular: no vascular compromise Peripheral: sensation nml, motor nml Central: oriented X3, motor nml, sensation nml, mood/affect nml Respiratory: no resp. distress Abdomen: non-tender, nml bowel sounds Discharge Clincal Impression: Traumatic hematoma of right upper arm Qualifiers: Encounter type: initial encounter Qualified Code(s): S40.021A - Contusion of right upper arm, initial encounter Referrals: Sergio Felix MD [Primary Care Provider] - 2 Days Additional Instructions: 1. Tylenol as needed for pain 2. Warm moist compresses to affected area as needed for comfort 3. Hematoma will resolve on its own over the next 7-10 days 4. Follow up with PCP within 1 week 5. Return to the ER for new or worsening symptoms. Condition: Stable Disposition: 01 HOME, SELF-CARE Decision to Admit: NO Date of Decison to Admit: 10/03/18 Decision Time: 14:43
== END 2018-10-03 14:51 | disposition home or self-care (01) ==
LOC: ED 14:20
DX: S40.021A Contusion of right upper arm, initial encounter (principal)
CPT/HCPCS: 99281; 99284